=== PATIENT | female | born 1980 | race Caucasian/White ===

== ENCOUNTER 2019-08-15 04:46 | Emergency (ER) | payer OTHER ==
[2019-08-15 05:01] VITALS: BP 117/77; PULSE 68
[2019-08-15] MEDS ORDERED: Ketorolac 30 MG/ML SDV IVPUSH ONE (05:17)
[2019-08-15] MEDS ORDERED: diphenhydrAMINE 50 MG/ML SDV IVPUSH ONE (05:18)
[2019-08-15] MEDS ORDERED: Sodium Chloride 0.9% 10 ML Syringe FLUSH PRN (05:18)
[2019-08-15] MEDS ORDERED: Prochlorperazine 10 MG/2 ML SDV IVPUSH ONE (05:18)
--- NOTE | 2019-08-15 05:20 | EDM.PDOC ---
<OfficerClayton - Last Filed: 08/15/19 05:19> ED HPI GENERAL MEDICAL PROBLEM - General Chief Complaint: Headache Stated Complaint: MIGRAINE Time Seen by Provider: 08/15/19 05:14 Source of Information: Reports: Patient, RN Notes Reviewed History Limitations: Reports: No Limitations - History of Present Illness INITIAL COMMENTS - FREE TEXT/NARRATIVE: 39-year-old female presents emergency department today complaint of migraine headache, she states is a typical migraine for her only it is not been able to break she has tried her migraine medication without much relief she does have nausea photophobia phonophobia no aura Treatments SLINGER SEQUINS: Reports: Other (see below) Other Treatments SLINGER SEQUINS: unknown Headache Pain Score (Numeric/FACES): 10 - Related Data Allergies Allergy/AdvReac Type Severity Reaction Status Date / Time No Known Allergies Allergy Verified 08/15/19 05:01 Home Meds: Home Meds Cyclobenzaprine [Flexeril] 5 mg PO ASDIRECTED 05/03/16 [History] Citalopram [Citalopram HBr] 10 mg PO DAILY 08/15/19 [History] Rizatriptan Benzoate [Rizatriptan] 5 mg PO ASDIRECTED 08/15/19 [History] Past Medical History Neurological History: Reports: Migraines Psychiatric History: Reports: Depression Social & Family History - Tobacco Use Smoking Status *Q: Never Smoker Second Hand Smoke Exposure: No - Caffeine Use Caffeine Use: Reports: None - Recreational Drug Use Recreational Drug Use: No - Living Situation & Occupation Living situation: Reports: Occupation: Employed ED ROS GENERAL - Review of Systems Review Of Systems: See Below Constitutional: Reports: No Symptoms HEENT: Reports: Eye Pain Respiratory: Reports: No Symptoms Cardiovascular: Reports: No Symptoms GI/Abdominal: Reports: Nausea - Physical Exam Exam: See Below Exam Limited By: No Limitations General Appearance: Alert, WD/WN, No Apparent Distress Eye Exam: Bilateral Eye: EOMI, Normal Fundi, Normal Inspection, PERRL Respiratory/Chest: No Respiratory Distress Course - Vital Signs Last Recorded V/S: Last Vital Signs Temp 97.0 F 08/15/19 04:57 Pulse 68 08/15/19 04:57 Resp 14 08/15/19 04:57 BP 117/77 08/15/19 04:57 Pulse Ox 97 08/15/19 04:57 - Orders/Labs/Meds Orders: Active Orders 24 hr Category Date Time Status Peripheral IV Care [RC] . DIRECTED Care 08/15/19 05:18 Active Peripheral IV Insertion Adult [OM.PC] Urgent Oth 08/15/19 05:17 Ordered Meds: Medications Discontinued Medications Generic Name Dose Route Start Last Admin Trade Name Freq PRN Reason Stop Dose Admin Diphenhydramine HCl 50 mg 08/15/19 05:18 08/15/19 05:36 Benadryl IVPUSH 08/15/19 05:19 50 mg ONETIME ONE Administration Haloperidol Lactate 5 mg 08/15/19 06:37 08/15/19 06:44 Haldol IVPUSH 08/15/19 06:38 5 mg ONETIME ONE Administration Hydromorphone HCl 0.5 mg 08/15/19 07:34 08/15/19 07:39 Dilaudid IVPUSH 08/15/19 07:35 0.5 mg ONETIME ONE Administration Sodium Chloride 1,000 mls @ 999 mls/hr 08/15/19 05:30 08/15/19 05:32 Normal Saline IV 999 mls/hr ASDIRECTED KRUNAL Administration Ketorolac Tromethamine 30 mg 08/15/19 05:17 08/15/19 05:41 Toradol IVPUSH 08/15/19 05:18 30 mg ONETIME ONE Administration Prochlorperazine Edisylate 5 mg 08/15/19 05:18 08/15/19 05:33 Compazine IVPUSH 08/15/19 05:19 5 mg ONETIME ONE Administration Sodium Chloride 10 ml 08/15/19 05:18 08/15/19 05:30 Saline Flush FLUSH 10 ml ASDIRECTED PRN Administration Keep Vein Open Departure - Departure Disposition: Home, Self-Care 01 Clinical Impression: Migraine Qualifiers: Migraine type: with aura Status migrainosus presence: without status migrainosus Intractability: not intractable Qualified Code(s): G43.109 - Migraine with aura, not intractable, without status migrainosus - Discharge Information Instructions: Migraine Headache Referrals: Hawa Fregoso PA [Primary Care Provider] - Forms: ED Department Discharge Care Plan Goals: Rest today and continue your regular medications. Increase diet and activity as tolerated and return if worsening despite treatment. Sepsis Event Note - Evaluation Sepsis Screening Result: No Definite Risk - Focused Exam Vital Signs: Vital Signs Temp Pulse Resp BP Pulse Ox 08/15/19 04:57 97.0 F 68 14 117/77 97 Date Exam was Performed: 08/15/19 Time Exam was Performed: 05:19 <Son Day - Last Filed: 08/15/19 08:32> Course - Re-Assessments/Exams Free Text/Narrative Re-Assessment/Exam: 08/15/19 07:33 Care turned over from Officer pending response to migraine medication treatment. Still a moderate frontal headache, she was given 0.5 mg of IV Dilaudid and discharged home. She will return if worsening. Departure - Departure Time of Disposition: 07:47 Sepsis Event Note - Focused Exam Date Exam was Performed: 08/15/19 Time Exam was Performed: 08:32
[2019-08-15] MEDS ORDERED: Sodium Chloride 0.9% 1,000 ML IV SCH (05:30)
[2019-08-15] MEDS ORDERED: Haloperidol Lactate 5 MG/ML SDV IVPUSH ONE (06:37)
[2019-08-15] MEDS ORDERED: HYDROmorphone 0.5 MG/0.5 ML Syringe IVPUSH ONE (07:34)
== END 2019-08-15 07:46 | disposition home or self-care (01) ==
LOC: JP.ED 04:46
DX: G43.109 Migraine with aura, not intractable, without status migrainosus (principal); F32.9 Major depressive disorder, single episode, unspecified; Z79.899 Other long term (current) drug therapy
CPT/HCPCS: 96361; 96374; 96375; 99284; J0780; J1170; J1200; J1630; J1885; J7030